=== PATIENT | female | born 1975 | race Caucasian/White ===

== ENCOUNTER 2023-09-04 15:28 | Outpatient (OUT) | payer OTHER, SELFPAY ==
--- NOTE | 2023-09-04 15:30 | MM_ITS ---
Patient Name TORRES DYSON MR# Age Sex Date Time [id number] F 09/04/2023 15:34 At the Request Of DR Javed Parks . RADIOLOGY REPORT PROCEDURE: MM TOMOSYNTHESIS SCREENING BI COMPARISON: None. INDICATIONS: Screening Calculator Name NCI Breast Cancer Risk Assessment Tool 5 Year Breast Cancer Risk 1.20% Lifetime Breast Cancer Risk 14.20% Personal Breast Cancer No Personal Ovarian Cancer No Treatments None Family Cancers None LOCATION: [facility] BREAST COMPOSITION: Heterogeneously dense,which may obscure small masses. FINDINGS: DIAGNOSTIC CATEGORY 2--BENIGN FINDING: RIGHT BREAST: No significant suspicious finding. Small lymph node posterior lower-outer quadrant favoring benign etiology. LEFT BREAST: No significant suspicious finding. RECOMMENDATIONS: ROUTINE MAMMOGRAM AND CLINICAL EVALUATION IN 12 MONTHS. PLEASE NOTE: A NORMAL MAMMOGRAM DOES NOT EXCLUDE THE POSSIBILITY OF BREAST CANCER. A CLINICALLY SUSPICIOUS PALPABLE LUMP SHOULD BE BIOPSIED. Dictated by: Rafita Tatum M.D. on 09/05/2023 at 10:31 Approved by: Rafita Tatum M.D. on 09/05/2023 at 10:47
== END 2023-09-04 15:29 | disposition home or self-care (01) ==
LOC: MAMMO 15:28
PROVIDERS: PCP Family Medicine; Visit Provider Family Medicine
DX: Z12.31 Encounter for screening mammogram for malignant neoplasm of breast (principal)
CPT/HCPCS: 77063; 77067